=== PATIENT | male | born 1980 ===

== ENCOUNTER 2019-01-01 17:08 | Emergency (ER) | payer OTHER ==
[~2019-01-01] VITALS: Ht 177.8 cm; Wt 96.2 kg
[2019-01-01] MEDS ORDERED: ZOLOFT25 MG PO (17:54)
[2019-01-01] MEDS ORDERED: ATIVAN0.5 M1 PO (17:55)
== END 2019-01-01 22:19 | disposition home or self-care (01) ==
LOC: ER 17:08 → EDBD 17:20 → ER 17:20
DX: B34.9 Viral infection, unspecified (principal); K52.89 Other specified noninfective gastroenteritis and colitis; R10.84 Generalized abdominal pain; J11.1 Influenza due to unidentified influenza virus with other respiratory manifestations